=== PATIENT | male | born 1985 | race Hispanic/Latino ===

== ENCOUNTER 2018-11-21 16:05 | Emergency (ER) | payer SELFPAY ==
[2018-11-21] MEDS ORDERED: METHYLPREDNISOLONE 125 MG INJ ONE (16:31)
[2018-11-21] MEDS ORDERED: COLCHICINE 0.6 MG TAB ONE (16:32)
--- NOTE | 2018-11-21 16:32 | ER ---
Nurse's Notes [facility] Name: Dwayne Maynard Age: 33 yrs Sex: Male : 1985 Arrival Date: 11/21/2018 Time: 16:10 Bed 6 Private MD: Diagnosis: Gout Presentation: 11/21 16:11 Presenting complaint: Patient states: left foot pain started last night, hx gout. sv Transition of care: patient was not received from another setting of care. Onset of symptoms was November 20, 2018. Risk Assessment: Do you want to hurt yourself or someone else? Patient reports no desire to harm self or others. Care prior to arrival: None. 16:11 Method Of Arrival: Wheelchair sv 16:11 Acuity: LANCE 4 sv Historical: - Allergies: 16:11 No Known Allergies; sv - PMHx: 16:11 Gout; sv - PSHx: 16:11 None; sv Screenin:27 Abuse screen: Denies threats or abuse. Nutritional screening: No deficits noted. la1 Tuberculosis screening: No symptoms or risk factors identified. Fall Risk None identified. Assessment: 16:26 General: Appears in no apparent distress. Behavior is calm, cooperative. Pain: la1 Complains of pain in left foot. Neuro: Level of Consciousness is awake, alert, obeys commands, Oriented to person, place, time, situation. Cardiovascular: Capillary refill < 3 seconds Patient's skin is warm and dry. Respiratory: Airway is patent Respiratory effort is even, unlabored. GI: No signs and/or symptoms were reported involving the gastrointestinal system. : No signs and/or symptoms were reported regarding the genitourinary system. Musculoskeletal: Circulation, motion, and sensation intact. Capillary refill < 3 seconds, is brisk, in bilateral toes. Vital Signs: 16:11 BP 125 / 84; Pulse 102; Resp 18; Temp 98.7; Pulse Ox 95% ; Weight 122.47 kg; Height 5 sv ft. 8 in. (172.72 cm); 16:11 Body Mass Index 41.05 (122.47 kg, 172.72 cm) sv ED Course: 16:10 Patient arrived in ED. sv 16:11 Triage completed. sv 16:12 Oswald Salgado RN is Primary Nurse. la1 16:12 Arm band placed on. sv 16:22 Delia Hanna FNP-C is PHCP. kb 16:22 Shawn Najera MD is Attending Physician. kb 16:27 Patient has correct armband on for positive identification. la1 16:27 No provider procedures requiring assistance completed. Patient did not have IV access la1 during this emergency room visit. Administered Medications: 16:40 Drug: SOLU-Medrol 125 mg Route: IM; Site: left gluteus; la1 16:40 Follow up: Response: No adverse reaction la1 16:40 Drug: Colcrys 1.2 mg Route: PO; la1 16:41 Follow up: Response: No adverse reaction la1 Outcome: 16:32 Discharge ordered by . kb 16:57 Patient left the ED. la1 Signatures: Delia Hanna FNP-C FNP-Ckb Verde, Stephanie, RN RN sv Oswald Salgado RN RN la1
--- NOTE | 2018-11-21 16:33 | EDPHYS ---
Physician Documentation [facility] Name: Dwayne Maynard Age: 33 yrs Sex: Male : 1985 Arrival Date: 11/21/2018 Time: 16:10 Bed 6 Private MD: BONNIE Physician Shawn Najera HPI: 11/21 16:28 This 33 yrs old Male presents to ER via Wheelchair with complaints of Gout. kb 16:28 The patient presents with pain, swelling, tenderness. The complaints affect the left kb foot. Context: resulted from a chronic condition, gout, the patient can fully bear weight, the patient is able to ambulate. Onset: The symptoms/episode began/occurred yesterday. Modifying factors: The symptoms are alleviated by nothing, the symptoms are aggravated by nothing. Associated signs and symptoms: Pertinent positives: swelling. Severity of symptoms: At their worst the symptoms were moderate, in the emergency department the symptoms are unchanged. The patient has experienced similar episodes in the past. The patient has not recently seen a physician. Pt reports pain and swelling that is the same as previous gout flare-ups. Requests a shot of steroids because that is normally what works for him. Historical: - Allergies: 16:11 No Known Allergies; sv - PMHx: 16:11 Gout; sv - PSHx: 16:11 None; sv ROS: 16:25 Constitutional: Negative for fever, chills, and weight loss, ENT: Negative for injury, kb pain, and discharge, Neck: Negative for injury, pain, and swelling, Cardiovascular: Negative for chest pain, palpitations, and edema, Respiratory: Negative for shortness of breath, cough, wheezing, and pleuritic chest pain, Abdomen/GI: Negative for abdominal pain, nausea, vomiting, diarrhea, and constipation, Back: Negative for injury and pain, Neuro: Negative for headache, weakness, numbness, tingling, and seizure. 16:25 MS/extremity: Positive for pain, swelling, tenderness, of the left foot. Exam: 16:25 Constitutional: This is a well developed, well nourished patient who is awake, alert, kb and in no acute distress. Head/Face: Normocephalic, atraumatic. Neck: Trachea midline, no thyromegaly or masses palpated, and no cervical lymphadenopathy. Supple, full range of motion without nuchal rigidity, or vertebral point tenderness. No Meningismus. Chest/axilla: Normal chest wall appearance and motion. Nontender with no deformity. No lesions are appreciated. Cardiovascular: Regular rate and rhythm with a normal S1 and S2. No gallops, murmurs, or rubs. Normal PMI, no JVD. No pulse deficits. Respiratory: Lungs have equal breath sounds bilaterally, clear to auscultation and percussion. No rales, rhonchi or wheezes noted. No increased work of breathing, no retractions or nasal flaring. Abdomen/GI: Soft, non-tender, with normal bowel sounds. No distension or tympany. No guarding or rebound. No evidence of tenderness throughout. Back: No spinal tenderness. No costovertebral tenderness. Full range of motion. Neuro: Awake and alert, GCS 15, oriented to person, place, time, and situation. Cranial nerves II-XII grossly intact. Motor strength 5/5 in all extremities. Sensory grossly intact. Cerebellar exam normal. Normal gait. 16:25 Musculoskeletal/extremity: Extremities: grossly normal except: noted in the left foot: pain, swelling, tenderness, ROM: intact in all extremities, Circulation is intact in all extremities. Sensation intact. Weight bearing: able to fully bear weight. Vital Signs: 16:11 BP 125 / 84; Pulse 102; Resp 18; Temp 98.7; Pulse Ox 95% ; Weight 122.47 kg; Height 5 sv ft. 8 in. (172.72 cm); 16:11 Body Mass Index 41.05 (122.47 kg, 172.72 cm) sv MDM: 16:22 Patient medically screened. kb 16:25 Data reviewed: vital signs, nurses notes. Data interpreted: Pulse oximetry: on room air kb is 95 %. Interpretation: normal. Counseling: I had a detailed discussion with the patient and/or guardian regarding: the historical points, exam findings, and any diagnostic results supporting the discharge/admit diagnosis, the need for outpatient follow up, a family practitioner, to return to the emergency department if symptoms worsen or persist or if there are any questions or concerns that arise at home. Administered Medications: 16:40 Drug: SOLU-Medrol 125 mg Route: IM; Site: left gluteus; la1 16:40 Follow up: Response: No adverse reaction la1 16:40 Drug: Colcrys 1.2 mg Route: PO; la1 16:41 Follow up: Response: No adverse reaction la1 Disposition: 11/22 06:44 Co-signature as Attending Physician, Shawn Najera MD I agree with the assessment and kalen plan of care. Disposition: 11/21/18 16:32 Discharged to Home. Impression: Gout. - Condition is Stable. - Discharge Instructions: Gout, [id number]. - Prescriptions for indomethacin 25 mg Oral capsule - take 1 capsule by ORAL route 3 times per day As needed; 21 capsule. - Medication Reconciliation Form, Thank You Letter, Antibiotic Education, Prescription Opioid Use form. - Follow up: Emergency Department; When: As needed; Reason: Worsening of condition. Follow up: Private Physician; When: 2 - 3 days; Reason: Recheck today's complaints, Continuance of care, Re-evaluation by your physician. Signatures: Delia Hanna, Qing Chang RN RN sv Anderson, Corey, MD MD cha Attema, Lee RN RN la1 Corrections: (The following items were deleted from the chart) 11/21 16:57 16:32 11/21/2018 16:32 Discharged to Home. Impression: Gout. Condition is Stable. Forms la1 are Medication Reconciliation Form, Thank You Letter, Antibiotic Education, Prescription Opioid Use. Follow up: Emergency Department; When: As needed; Reason: Worsening of condition. Follow up: Private Physician; When: 2 - 3 days; Reason: Recheck today's complaints, Continuance of care, Re-evaluation by your physician. kb
[2018-11-21 17:07] VITALS: BP 125/84; TEMP 98.7; O2SAT 95
== END 2018-11-21 16:57 | disposition home or self-care (01) ==
LOC: ER 16:05
DX: M10.9 Gout, unspecified (principal)
CPT/HCPCS: 96372; 99282; J2930